=== PATIENT | female | born 1970 | race Caucasian/White ===

== ENCOUNTER 2018-11-24 07:59 | Day surgery (SDC) | payer OTHER ==
[~2018-11-24] VITALS: Ht 160 cm; Wt 93.9 kg
[~2018-11-24 07:59] MED LIST: ALPR1 PO; ASPI81CH PO; ATOR40TA PO; AUBAGIO7 MG PO; BUSP10 PO; CAMBIA50 MG PO; CITA20 PO; COPAXONE40 MG/1 ML SQ; CYCL10 PO; DICL75ER PO; ESCI20 PO; GABA600 PO; NUVIGIL250 MG PO; OXYB5 PO; PANT40 PO; TRAM50 PO; VITAMIN D32000 UNI1 PO; Zanaflex4 M1 PO; Zanaflex4 MG PO; Zantac150 MG PO
--- NOTE | 2018-11-24 10:23 | NUR ---
11/24/18 1023 Griselda Barcenas PT. C/O SORE THROAT POST PROCEDURE. PT. INSTRUCTED THAT IF BOTHERSOME SHE COULD JUST EAT SOFT FOODS, OTHERWISE SHE COULD EAT & DRINK WHATEVER SHE WANTED. PT. ALSO INSTRUCTED TO CALL DR. MARTINO IF SHE HAD TROUBLE SWALLOWING OR HER SORE THROAT DIDN'T GET BETTER.
== END 2018-11-24 10:12 | disposition home or self-care (01) ==
LOC: ORSCSDS 07:59
PROVIDERS: Internal Medicine Gastroenterology
PROC: 0DJD8ZZ Inspection of Lower Intestinal Tract, Via Natural or Artificial Opening Endoscopic (ICD-10-PCS; principal; 2018-11-24 09:15)
PROC: 0DB68ZX Excision of Stomach, Via Natural or Artificial Opening Endoscopic, Diagnostic (ICD-10-PCS; principal; 2018-11-24 09:15)
PROC: 0D758ZZ Dilation of Esophagus, Via Natural or Artificial Opening Endoscopic (ICD-10-PCS; principal; 2018-11-24 09:15)
DX: K21.9 Gastro-esophageal reflux disease without esophagitis (principal); K22.2 Esophageal obstruction; R13.12 Dysphagia, oropharyngeal phase; K64.8 Other hemorrhoids; K57.30 Diverticulosis of large intestine without perforation or abscess without bleeding; Z83.71 Family history of colonic polyps; K58.9 Irritable bowel syndrome, unspecified; G35 Multiple sclerosis; J45.909 Unspecified asthma, uncomplicated; E78.5 Hyperlipidemia, unspecified; Z79.899 Other long term (current) drug therapy
CPT/HCPCS: 88305; 88342; J7120

== ENCOUNTER 2019-07-20 14:49 | Emergency (ER) | payer OTHER ==
[~2019-07-20] VITALS: Ht 160 cm; Wt 94.8 kg
== END 2019-07-20 17:22 | disposition home or self-care (01) ==
LOC: ER 14:49
DX: S89.92XA Unspecified injury of left lower leg, initial encounter (principal); X50.9XXA Other and unspecified overexertion or strenuous movements or postures, initial encounter; Z88.8 Allergy status to other drugs, medicaments and biological substances; Z79.899 Other long term (current) drug therapy; Z79.891 Long term (current) use of opiate analgesic; E78.00 Pure hypercholesterolemia, unspecified
CPT/HCPCS: 29505; 73562-LT; 73610; 99283-25

== ENCOUNTER 2020-10-18 09:37 | Day surgery (SDC) | payer OTHER ==
[~2020-10-18] VITALS: Ht 160 cm; Wt 104.0 kg
--- NOTE | 2020-10-18 10:46 | NUR ---
Ambulatory in Day Surgery Surgical site prepped with 2% Chlorhexidine cloth wipe. History, Chart, Medications and Allergies reviewed before start of procedure. Lungs clear T/O to Auscultation. Patient confirms NPO status and agrees with scheduled surgery. Patient States Post-Procedure ride home has been arranged.
[2020-10-18] MEDS ORDERED: TOLT2 PO (11:11)
[2020-10-18] MEDS ORDERED: Vitamin D2000 UNIT PO (11:13)
--- NOTE | 2020-10-18 16:51 | NUR ---
OTHER RN Cynthia GIVEN REPORT SHE IS TAKING OVER CARE.
[2020-10-19 04:17] LABS: BASOPHILS ABSOLUTE AUTO 0.01 K/mm3 (0.00-0.23); BASOPHILS PERCENT AUTO 0 % (0-2); EOSINOPHILS PERCENT AUTO 0 % (0-6); Hematocrit 38.4 % (33.0-51.0); Hemoglobin 12.5 g/dL (11.5-16.0); IMMATURE GRAN ABSOLUTE AUTO 0.03 K/mm3 (0.00-0.10); IMMATURE GRAN PERCENT AUTO 0 % (0-1); LYMPHOCYTES ABSOLUTE AUTO 0.81 K/mm3 (0.84-5.20); LYMPHOCYTES PERCENT AUTO 7 % (21-46); MONOCYTES ABSOLUTE AUTO 0.28 K/mm3 (0.16-1.47); MONOCYTES PERCENT AUTO 2 % (4-13); Mean Corpuscular HGB 30.7 pg (26.0-34.0); Mean Corpuscular HGB Conc 32.6 g/dL (31.5-36.5); Mean Corpuscular Volume 94 fL (80-100); Mean Platelet Volume 9.2 fL (9.1-12.4); NEUTROPHILS ABSOLUTE AUTO 11.08 K/mm3 (1.96-9.15); NEUTROPHILS PERCENT AUTO 91 % (41-73); Platelet Count 365 K/mm3 (150-400); RDW Coefficient Variation 12.3 % (11.7-14.2); RDW Standard Deviation 42.7 fL (35.1-46.3); Red Blood Cell Count 4.07 M/mm3 (3.80-5.20); White Blood Cell Count 12.21 K/mm3 (4.00-11.30)
--- NOTE | 2020-10-19 04:20 | NUR ---
SHIFT SUMMARY: PT POD#1 FOR A PARTIAL R KNEE REPLACEMENT. ELE WRAP C/D/I WITH POLAR PACK IN PLACE. PT REPORTS NUMBNESS TO RLE. ABLE TO WIGGLE TOES. PULSE IS STRONG. CAP REFILL WNL. PT OUT OF BED TO BATHROOM WITH SBA AND FWW+GB. PAIN BEING MANAGED WITH 5MG OXY AND SCHEDULED TORADOL AND TYLENOL. PT MEDICATED WITH XANAX ONCE FOR C/O FEELING ANXIOUS. PT JAM PO. DENIES N/V. VOIDING WELL. VSS THROUGHOUT SHIFT. PT SITTING IN CHAIR THIS MORNING WITH EXTREMITY ELEVATED.
[2020-10-19 04:35] LABS: Anion Gap 5 mmol/L (6-16); Blood Urea Nitrogen 14 mg/dL (8-24); Bun/Creatinine Ratio 18.5 (12.0-20.0); CO2, Blood 26 mmol/L (21-32); Calcium, Blood 7.9 mg/dL (8.5-10.1); Chloride, Blood 107 mmol/L (98-108); Creatinine, Blood 0.76 mg/dL (0.40-1.00); Glomerular Filtration Rate >60 (60-); Glucose, Blood 153 mg/dL (70-99); Potassium, Blood 4.2 mmol/L (3.5-5.5); Sodium, Blood 138 mmol/L (136-145)
--- NOTE | 2020-10-19 09:00 | NUR ---
DR MCKINLEY BEEN HERE TO SEE PT.
[2020-10-19] MEDS ORDERED: ASPI81CH PO (13:24)
[2020-10-19] MEDS ORDERED: Percocet 5-3251 EACH PO (13:25)
--- NOTE | 2020-10-19 13:38 | NUR ---
DISCHARGE: PT EATING AND DRINKING, VOIDING, PASSING GAS. PT PAIN CONTROLLED ON PO PAIN MEDICATION. PT/FAMILY REPORTS UNDERSTANDING OF DISCHARGE INSTRUCTIONS. PT CLEARED THERAPY TO GO HOME. PT SENT WITH DRESSING SUPPLIES, SCRIPT AND PAPERWORK. PT REPORTS HAVING WALKER AT HOME. PT SENT WITH ICE MACHINE WELL.
--- NOTE | 2020-10-20 13:35 | NUR ---
10/20/20 1335 Leslie Penaloza VERIFICATIONS: EDIT CHART.
== END 2020-10-19 13:42 | disposition home or self-care (01) ==
LOC: ORSCMMR 09:37 → SURS 14:57 → ORSCMMR 10-19 13:42
PROVIDERS: Orthopaedic Surgery
PROC: 8E0Y0CZ Robotic Assisted Procedure of Lower Extremity, Open Approach (ICD-10-PCS; principal; 2020-10-18 11:00)
PROC: 0SQC0ZZ Repair Right Knee Joint, Open Approach (ICD-10-PCS; principal; 2020-10-18 11:00)
PROC: 0MTN0ZZ Resection of Right Knee Bursa and Ligament, Open Approach (ICD-10-PCS; principal; 2020-10-18 11:00)
PROC: 0QRD0JZ Replacement of Right Patella with Synthetic Substitute, Open Approach (ICD-10-PCS; principal; 2020-10-18 11:00)
DX: M17.11 Unilateral primary osteoarthritis, right knee (principal); M70.41 Prepatellar bursitis, right knee; K21.9 Gastro-esophageal reflux disease without esophagitis; G35 Multiple sclerosis; E66.01 Morbid (severe) obesity due to excess calories; Z68.41 Body mass index [BMI] 40.0-44.9, adult; Z79.899 Other long term (current) drug therapy
CPT/HCPCS: 27438; 27340; 27403; S2900; 36415; 73560-RT; 80048; 84703; 85025; 87070; 88300; 97110; 97116; 97162; A9270; C1713; C1776; J0171; J0690; J0735; J1100; J1885; J2250; J2405; J2704; J2795; J3010; J7120

== ENCOUNTER → 2022-04-23 | Outpatient (CLI) | payer OTHER ==
[~2022-04-23] MED LIST changes: +Percocet 5-3251 EACH PO; +TOLT2 PO; +Vitamin D2000 UNIT PO
[2022-04-26 15:10] LABS: HPV 16 Negative (Negative); HPV 18 Negative (Negative); HPV OTHER HR TYPES Negative (Negative)
== END | disposition home or self-care (01) ==
LOC: LAB SHORT 11:33 → LAB 11:33
PROVIDERS: Advanced Practice Midwife
DX: Z01.419 Encounter for gynecological examination (general) (routine) without abnormal findings (principal)
CPT/HCPCS: 87624; G0123

== ENCOUNTER 2022-07-20 07:10 | Day surgery (SDC) | payer OTHER ==
[~2022-07-20] VITALS: Ht 160 cm; Wt 103.2 kg
[2022-07-20] MEDS ORDERED: ALPR1 PO (08:17)
[2022-07-20] MEDS ORDERED: CARBATROL PO (08:24)
[2022-07-20] MEDS ORDERED: BACLOFEN5 M1 PO (08:25)
--- NOTE | 2022-07-20 09:00 | NUR ---
07/20/22 0900 FRANTZ PARRY ROPIVACAINE 0.5% 10 MLS MIXED W/ EPI 0.05 ML (IMG/ML) PER ORDER TO MAKE ROPIVACAINE 0.5% 1:200,000 FOR INJECTION AT OPSITE BY DR MCKINLEY
== END 2022-07-20 10:53 | disposition home or self-care (01) ==
LOC: ORSCSDS 07:10
PROVIDERS: Orthopaedic Surgery
PROC: 0SBD4ZZ Excision of Left Knee Joint, Percutaneous Endoscopic Approach (ICD-10-PCS; principal; 2022-07-20 08:30)
DX: S83.249A Other tear of medial meniscus, current injury, unspecified knee, initial encounter (principal); E78.5 Hyperlipidemia, unspecified; K21.9 Gastro-esophageal reflux disease without esophagitis; G35 Multiple sclerosis; M79.7 Fibromyalgia; E66.9 Obesity, unspecified; Z68.41 Body mass index [BMI] 40.0-44.9, adult; Z79.82 Long term (current) use of aspirin; Z79.51 Long term (current) use of inhaled steroids; Z79.899 Other long term (current) drug therapy
CPT/HCPCS: A9270; J0171; J0690; J1100; J1885; J2250; J2405; J2704; J2795; J3010; J7120

== ENCOUNTER 2023-11-29 10:12 | Day surgery (SDC) | payer OTHER ==
[2023-11-29] VITALS (13 sets, daily range): BP systolic 140–161; BP diastolic 77–98
[~2023-11-29] VITALS: Ht 157.5 cm; Wt 105.7 kg
[~2023-11-29 10:12] MED LIST changes: +BACLOFEN5 M1 PO; +CARBATROL PO; +Norco 5-325 Ta1 EACH PO
[2023-11-29] MEDS ORDERED: Lactated Ringer's 1,000 ML IV SCH (11:30)
[2023-11-29] MEDS ORDERED: Norco 5-325 Ta1 EACH PO (11:38)
[2023-11-29 12:28] LABS: Bun/Creatinine Ratio 17.2 (12.0-20.0); Calcium, Blood 9.3 mg/dL (8.5-10.1); Creatinine, Blood 0.76 mg/dL (0.40-1.00); Potassium, Blood 4.1 mmol/L (3.5-5.5)
--- NOTE | 2023-11-29 12:29 | NUR ---
Ambulatory in Day Surgery. History, Chart, Medications and Allergies reviewed before start of procedure.Lungs clear T/O to Auscultation. Patient confirms NPO status and agrees with scheduled surgery. Pre-Op teaching done. Pt verbalizes understanding. Patient States Post-Procedure ride home has been arranged.
[2023-11-29] MEDS ORDERED: FentaNYL Citrate 50 MCG/ML 2 ML Injection ONE (13:00)
[2023-11-29] MEDS ORDERED: propofoL 20 ML IV ONE (13:00)
[2023-11-29] MEDS ORDERED: Ketorolac Tromethamine 30mg Vial ONE (13:02)
[2023-11-29] MEDS ORDERED: Dexamethasone Sod Phos 10 MG/ML 1ML VIAL ONE (13:02)
[2023-11-29] MEDS ORDERED: Ondansetron HCl 2 MG / ML 2ML Vial ONE (13:02)
[2023-11-29] MEDS ORDERED: Lidocaine HCl 1% 5 ML SYR INJ ONE (13:05)
[2023-11-29] MEDS ORDERED: HYDROmorphone HCl/Pf 1MG SYR IV PRN (13:05)
[2023-11-29] MEDS ORDERED: FentaNYL Citrate 50 MCG/ML 2 ML Injection IV PRN ×3 (13:05)
[2023-11-29] MEDS ORDERED: Midazolam HCl 1MG / ML 2ML Vial IV PRN (13:05)
[2023-11-29] MEDS ORDERED: Ondansetron HCl 2 MG / ML 2ML Vial IV PRN (13:05)
[2023-11-29] MEDS ORDERED: OxyCODONE HCL 5 MG TAB PO PRN (15:50)
[2023-11-29] MEDS ORDERED: Acetaminophen 500 MG Tab PO ONE (15:50)
--- NOTE | 2023-11-29 16:02 | NUR ---
1554 REPORT RECEIVED FROM ELYSSA GUEVARA. VSS. PT ON RA. PT ABLE TO REPOSITION SELF IN BED. PT REQUESTING PO FOOD AND FLUIDS AND TOLERATING THEM WELL. PT HAS PERIPAD IN PLACE WITH MODERATE VAGINAL BLOOD NOTED. PT REPORTS 5/10 STINGING PAIN TO TO VAGINA. PT DENIES NAUSEA OR OTHER DISCOMFORTS.
--- NOTE | 2023-11-29 16:41 | NUR ---
Patient up to Ambulate independently TO BR TO VOID. MINIMAL BLEEDING NOTED ON ANTHONY PAD AND IN URINE. VSS AND CONSISTENT WITH PT BASELINE. PT HAS NO COMPLAINTS AND VERBALIZES READINESS TO GO HOME. Discharge instructions reviewed with patient. Patient verbalizes understanding. Copy given to patient to take home. Patient States Post-Procedure ride home has been arranged. Discharged via wheelchair to private car for ride home. PT BELONGINGS RETURNED TO PT.
== END 2023-11-29 16:44 | disposition home or self-care (01) ==
LOC: ORSCMMR 10:12 → ORD 11:45 → ORSCMMR 16:44
PROVIDERS: Obstetrics & Gynecology
PROC: 0UDB8ZX Extraction of Endometrium, Via Natural or Artificial Opening Endoscopic, Diagnostic (ICD-10-PCS; principal; 2023-11-29 12:45)
DX: N95.0 Postmenopausal bleeding (principal); R93.89 Abnormal findings on diagnostic imaging of other specified body structures; D25.0 Submucous leiomyoma of uterus; N99.85 Post endometrial ablation syndrome; G35 Multiple sclerosis; I10 Essential (primary) hypertension; K21.9 Gastro-esophageal reflux disease without esophagitis; E66.01 Morbid (severe) obesity due to excess calories; Z68.41 Body mass index [BMI] 40.0-44.9, adult; F41.9 Anxiety disorder, unspecified; F32.A Depression, unspecified; Z79.899 Other long term (current) drug therapy
CPT/HCPCS: 76998; 80048; 88305; A9270; J1100; J1885; J2405; J2704; J3010; J7120

== ENCOUNTER → 2024-02-19 | Outpatient (CLI) | payer OTHER ==
[2024-02-19 15:18] LABS: Source, Urine Clean Catch
[2024-02-19 18:43] LABS: Appearance, Urine Clear (Clear); Bilirubin, Urine Neg (Neg); Blood, Urine Neg (Neg); Color, Urine Yellow (P-Yellow); Glucose Qualitative, Urine Neg (Neg); Ketones, Urine Neg (Neg); Leukocyte Esterase, Urine Neg (Neg); Nitrite, Urine Neg (Neg); Protein, Urine Neg (Neg); Specific Gravity, Urine 1.015 (1.003-1.022); Urobilinogen, Urine NORM (Normal)
== END | disposition home or self-care (01) ==
LOC: LAB SHORT 13:30 → LAB 13:30 → LAB SHORT 15:15
PROVIDERS: Nurse Practitioner Family
DX: E78.2 Mixed hyperlipidemia (principal)
CPT/HCPCS: 81003

== ENCOUNTER 2025-07-06 15:01 | Emergency (ER) | payer OTHER ==
[~2025-07-06] VITALS: Ht 160 cm; Wt 99.8 kg
[2025-07-06 15:43] LABS: BASOPHILS ABSOLUTE AUTO 0.04 K/mm3 (0.00-0.23); BASOPHILS PERCENT AUTO 1 % (0-2); EOSINOPHILS ABSOLUTE AUTO 0.09 K/mm3 (0.00-0.68); EOSINOPHILS PERCENT AUTO 1 % (0-6); Hematocrit 40.5 % (33.0-51.0); Hemoglobin 13.8 g/dL (11.5-16.0); IMMATURE GRAN ABSOLUTE AUTO 0.01 K/mm3 (0.00-0.10); IMMATURE GRAN PERCENT AUTO 0 % (0-1); LYMPHOCYTES ABSOLUTE AUTO 2.18 K/mm3 (0.84-5.20); LYMPHOCYTES PERCENT AUTO 29 % (21-46); MONOCYTES ABSOLUTE AUTO 0.37 K/mm3 (0.16-1.47); MONOCYTES PERCENT AUTO 5 % (4-13); Mean Corpuscular HGB Conc 34.1 g/dL (31.5-36.5); Mean Corpuscular Volume 88 fL (80-100); NEUTROPHILS ABSOLUTE AUTO 4.72 K/mm3 (1.96-9.15); NEUTROPHILS PERCENT AUTO 64 % (41-73); NRBC ABSOLUTE 0.00 K/mm3 (0.00-0.02); NRBC Auto 0.0 /100 WBC (0.0-0.2); Platelet Count 434 K/mm3 (150-400); RDW Coefficient Variation 11.9 % (11.7-14.2); RDW Standard Deviation 38.1 fL (35.1-46.3)
[2025-07-06 16:14] LABS: Alanine Aminotransfer (ALT/SGP 26.0 U/L (12-78); Albumin, Blood 4.1 g/dL (3.4-5.0); Albumin/Globulin Ratio 1.2 (0.8-1.8); Anion Gap 7.0 mmol/L (3-11); Aspartate Aminotrans (AST/SGOT 13.0 U/L (12-37); Bilirubin, Total 0.4 mg/dL (0.1-1.0); Blood Urea Nitrogen 16.0 mg/dL (8-24); CO2, Blood 24.0 mmol/L (21-32); Calcium, Blood 9.3 mg/dL (8.5-10.1); Chloride, Blood 108.0 mmol/L (98-108); Creatinine, Blood 0.77 mg/dL (0.40-1.00); Globulin, Blood 3.5 g/dL (2.2-4.0); Glucose, Blood 105.0 mg/dL (70-99); Potassium, Blood 3.8 mmol/L (3.5-5.5); Sodium, Blood 135.0 mmol/L (136-145); Total Protein, Blood 7.6 g/dL (6.4-8.2)
[2025-07-06] MEDS ORDERED: Ketorolac Tromethamine 15mg Vial IV ONE (19:15)
[2025-07-06 19:38] VITALS: BP 59/95
[2025-07-06] MEDS ORDERED: CEPH500 PO (19:45)
== END 2025-07-06 19:54 | disposition home or self-care (01) ==
LOC: ER 15:01
PROVIDERS: Student in an Organized Health Care Education/Training Program
DX: L03.314 Cellulitis of groin (principal); G35 Multiple sclerosis; Z79.82 Long term (current) use of aspirin; Z79.899 Other long term (current) drug therapy; Z88.8 Allergy status to other drugs, medicaments and biological substances
CPT/HCPCS: 74177; 80053; 85025; 85379; 96374-59; 99284-25; A9270; J1885; Q9967